=== PATIENT | female | born 1955 | race Caucasian/White ===

== ENCOUNTER 2017-04-25 06:37 | Day surgery (SDC) | payer OTHER ==
[~2017-04-25] VITALS: Ht 147.3 cm; Wt 79.6 kg
[2017-04-25 07:28] VITALS: Ht 147.3 cm; Wt 79.6 kg
[2017-04-25] MEDS ORDERED: OMEP-28 PO (07:34)
[2017-04-25] MEDS ORDERED: HYDR12.58 PO (07:34)
[2017-04-25] MEDS ORDERED: BENA40TA54 PO (07:34)
[2017-04-25] MEDS ORDERED: ASPI-664 PO (07:34)
[2017-04-25 08:18] VITALS: BP 182/83; PULSE 60; RESP 18
[2017-04-25] MEDS ORDERED: LIDOCAINE 4% SOLUTION 50 ML BTL ONE (08:38)
[2017-04-25] MEDS ORDERED: MIDAZOLAM 1 MG/ML 2 ML INJ ONE ×2 (09:18→09:19)
[2017-04-25] MEDS ORDERED: FENTAnyl 50 MCG/ML VIAL ONE (09:19)
--- NOTE | 2017-04-25 09:30 | GILP ---
DATE OF PROCEDURE: PROCEDURE: Esophagogastroduodenoscopy. PREOPERATIVE DIAGNOSIS: 1. Patient presenting with a history of abdominal pain on and off, unresponsive to routine therapy, which is omeprazole. 2. Rule out peptic ulcer disease, esophagitis. POSTOPERATIVE DIAGNOSES: 1. Mild reflux esophagitis. Biopsy was done to rule out Helicobacter pylori infection. 2. Several erosions noted in the antrum and the fundus. Biopsy was done to rule out Helicobacter p ylori infection. DESCRIPTION OF PROCEDURE: After the informed written consent was obtained, the patient was asked to lie on the left lateral side. Intravenous anesthesia was given which included 3 mg Versed and 50 m cg of fentanyl. When the patient became somnolent, the Olympus video upper endoscope was introduced into the oropharynx, then into the esophagus. Esophagus showed evidence of several areas of erythe ma above the GE junction indicating mild reflux esophagitis, [place] classification A. Biopsy w as done to rule out Paul's esophagus. Scope at this time was advanced into the stomach. Stomach showed evidence of few erosions in the antrum and the fundus and also in the mid body. Biopsy was done from the antrum, the lesser curvature and the fundus to rule out H. pylori infection. The muco sa of the duodenum appeared normal up to the end of the third portion. Scope at this time was withd rawn and on the way out, no additional abnormalities detected and the procedure was terminated. PLAN: Recommend wait for the pathology report. Meanwhile, recommend omeprazole 40 mg a day for 2 m onths. Dictated By: MARIA TERESA ARCHIBALD/NTS Conf#: [id number] DID#: [id number] CC: Helene Murphy MD;*EndCC*
--- NOTE | 2017-04-25 09:36 | GILP ---
DATE OF PROCEDURE: PROCEDURE: Colonoscopy. PREOPERATIVE DIAGNOSIS: Screening colonoscopy, rule out colon polyps. POSTOPERATIVE DIAGNOSES: A 4 mm flat polyp was noted in the proximal descending colon. This was re moved with the help of a cold biopsy forceps. Rest of the colon appeared normal except minimal inte rnal hemorrhoids, minimal external hemorrhoids grade 1. No bleeding noted. DESCRIPTION OF PROCEDURE: After the informed written consent was obtained, the patient was asked to lie on the left lateral side, a total of 4 mg Versed and 75 mcg of fentanyl was given as intravenou s anesthesia. When the patient became somnolent, the Olympus video colonoscope was introduced into the rectum, and the scope was advanced all the way to the cecum. Entire colon appeared normal; however, in the pro ximal descending colon, a 4 mm flat polyp was noted which looks like a raised polyp, but no stalk no di. This was removed with the help of a cold biopsy forceps. The scope at this time was withdrawn from the cecum. On the way out, careful evaluation was carried out. No additional abnormalities d etected. Retroflexion was performed, minimal grade 1 internal hemorrhoids were noted. When the sco pe was withdrawn, minimal grade 1 external hemorrhoids were noted, and the procedure was terminated. PLAN: Recommend wait for the pathology report. Dictated By: MARIA TERESA ARCHIBALD/CARMELINA Conf#: [id number] DID#: [id number] CC: Dawit;*EndCC*
[2017-04-25 09:42] VITALS: BP 145/82; RESP 20
== END 2017-04-25 15:13 | disposition home or self-care (01) ==
LOC: GIL 06:37
PROVIDERS: ATTEND Internal Medicine Gastroenterology
DX: Z12.11 Encounter for screening for malignant neoplasm of colon (principal); K21.0 Gastro-esophageal reflux disease with esophagitis; D12.2 Benign neoplasm of ascending colon; K64.8 Other hemorrhoids
CPT/HCPCS: 43239; 45380; 88305; 88312; 88313; J2250; J3010; Z7610